=== PATIENT | male | born 1980 | race Caucasian/White ===

== ENCOUNTER 2021-02-11 16:12 | Outpatient (REF) | payer OTHER, SELFPAY ==
--- NOTE | ~2021-02-11 | XR_ITS ---
EXAMINATION: XR THORACIC SPINE XR LEFT HIP CLINICAL INFORMATION: Dorsalgia. COMPARISON: None TECHNIQUE: 2 views left hip. 3 views dorsal spine. FINDINGS: Dorsal Spine: There is normal thoracic kyphosis. The vertebral heights, alignment and disc heights are normal. There is no visible acute fracture, dislocation or subluxation seen. No lytic process. The paravertebral soft tissues are normal. Left Hip: There is no visible acute fracture, dislocation or subluxation. No bony erosive changes. The soft tissues are normal. XR/XR hip LT min 2V IMPRESSION: Unremarkable lumbar spine exam. Unremarkable left hip exam.
--- NOTE | ~2021-02-11 | XR_ITS ---
EXAMINATION: XR THORACIC SPINE XR LEFT HIP CLINICAL INFORMATION: Dorsalgia. COMPARISON: None TECHNIQUE: 2 views left hip. 3 views dorsal spine. FINDINGS: Dorsal Spine: There is normal thoracic kyphosis. The vertebral heights, alignment and disc heights are normal. There is no visible acute fracture, dislocation or subluxation seen. No lytic process. The paravertebral soft tissues are normal. Left Hip: There is no visible acute fracture, dislocation or subluxation. No bony erosive changes. The soft tissues are normal. XR/XR thoracic spine 2V IMPRESSION: Unremarkable lumbar spine exam. Unremarkable left hip exam.
== END 2021-02-11 16:13 | disposition home or self-care (01) ==
LOC: HO.XRAY 16:12
PROVIDERS: PCP Internal Medicine; Visit Provider Internal Medicine
DX: M25.552 Pain in left hip (principal); M54.6 Pain in thoracic spine
CPT/HCPCS: 72070; 73502

== ENCOUNTER 2021-02-12 16:11 | Outpatient (REF) | payer OTHER, SELFPAY ==
[2021-02-12 16:37] LABS: MANUAL DIFF FLAG NO
[2021-02-12 17:07] LABS: Alanine Aminotransferase 13 U/L (0-40); Albumin Level 4.2 g/dL (3.5-5.0); Alkaline Phosphatase 66 U/L (39-117); Anion Gap 11 (12-20); Aspartate Amino Transferase 14 U/L (5-37); Bilirubin Total 0.6 mg/dL (0.0-1.0); Blood Urea Nitrogen 17 mg/dL (9-16); Calcium 9.4 mg/dL (8.4-10.2); Carbon Dioxide 30 mmol/L (22-29); Chloride 103 mmol/L (96-108); Estimated Glomerular Filt Rate > 60; Glucose Fasting 93 mg/dL (60-99); Potassium 4.3 mmol/L (3.3-5.1); Sodium 140 mmol/L (135-145); Total Protein 7.6 g/dL (6.5-8.0)
[2021-02-12 17:38] LABS: Basophils Percent Auto 0.2 % (0-2); Eosinophils Absolute Auto 0.1 X10*3/uL (0.0-0.4); Eosinophils Percent Auto 2.8 % (0-4); Hemoglobin 14.1 g/dl (14.0-18.0); Imm Gran Abs Auto 0.01 X10*3/uL (0.00-0.03); Imm Gran Pct Auto 0.2 % (0.0-0.4); Lymphocytes Percent Auto 46.4 % (20-40); Mean Corpuscular HGB Conc 32.8 g/dl (31.0-36.0); Mean Corpuscular Hemoglobin 29.7 pg (27.0-33.0); Mean Corpuscular Volume 90.5 fL (80-98); Mean Platelet Volume 11.2 fL (9.4-12.4); Monocytes Absolute Auto 0.5 X10*3/uL (0.1-1.2); Monocytes Percent Auto 10.4 % (2-11); Neutrophils Absolute Auto 1.7 X10*3/uL (2.0-8.3); Platelet Count 196 X10*3/uL (160-400); Red Blood Count 4.75 X10*6/uL (4.60-5.80); Red Cell Distribution Width 12.5 % (11.0-16.0); White Blood Count 4.3 X10*3/uL (4.8-10.8)
== END 2021-02-12 16:12 | disposition home or self-care (01) ==
LOC: HO.LAB 16:11
PROVIDERS: PCP Internal Medicine; Visit Provider Internal Medicine
DX: K21.9 Gastro-esophageal reflux disease without esophagitis (principal)
CPT/HCPCS: 36415; 80053; 85025

== ENCOUNTER 2021-04-27 12:12 | Emergency (ER) | payer OTHER, SELFPAY ==
[2021-04-27 12:40] VITALS: BP 113/73; PULSE 69; RESP 17; TEMP 36.1; O2SAT 96; BMI 40.4
--- NOTE | 2021-04-27 13:15 | ED.EAR ---
HPI - Ear Problem General Chief complaint: Ear Problems Stated complaint: foreign object in ear Time Seen by Provider: 04/27/21 13:15 History of Present Illness HPI Narrative: Patient complains of broken piece of Q-tip stuck in his left ear, no pain no other complaint Related Data Home Medications Medication Instructions Recorded Confirmed sucralfate 1 gram tablet 1 g PO QID tab 11/19/20 04/25/21 Previous Rx's Medication Instructions Recorded omeprazole 20 mg tablet,delayed 20 mg PO DAILY 30 Days #30 tab 10/22/20 release sumatriptan succinate 25 mg tablet 25 mg PO Q2-4H PRN 30 Days #9 tab 04/25/21 Allergies Allergy/AdvReac Type Severity Reaction Status Date / Time No Known Allergies Allergy Verified 04/25/21 09:42 Review of Systems Review of Systems: Positive for left ear foreign body Negatives are no fever no chills no headache no dizziness no weakness Yes all other systems are reviewed and are negative PMFSH Past Medical History Source: nursing notes reviewed Medical History (Updated 04/28/21 @ 00:01 by Jerad Barros) COVID-19 GERD (gastroesophageal reflux disease) Left hip pain Leukopenia Ophthalmoplegic migraine Sore throat Upper back pain Surgical History No pertinent past surgical history Family History Family History Father No problems noted. Mother Stroke Diabetes Hypertension Social History Social History Alcohol intake: former Patient Tobacco Use Status: Never used Tobacco Second Hand Smoke Exposure: No Advance Directives: Yes Advance Directives Information Provided: Yes Advance Directives on File: No Physical Exam Vital Signs: Vital Signs: Last Vital Signs Temp 96.9 F 04/27/21 12:40 Pulse 69 04/27/21 12:40 Resp 17 04/27/21 12:40 BP 113/73 04/27/21 12:40 Pulse Ox 96 04/27/21 12:40 Body Mass Index 40.4 General appearance is no acute distress, and cooperative Pupils equal round reactive to light extraocular motions are intact The ears the right ear is normal with normal tympanic membrane and clear canal The left ear is blocked with a piece of Q-tip, tympanic membrane not visualized Neck is supple Respiratory no distress Course Course Course Narrative: Piece of broken Q-tip is visualized and removed with a forceps, rear exam of the air shows intact tympanic membrane and no remaining foreign body Discharge Plan Discharge Clinical Impression: Ear foreign body Patient Disposition: Home, Self-Care Additional Instructions: Foreign body was removed, no sign of any damage to the ear drum Be careful using Q-tips, they are [id number] products to soften wax and then you can wash it out with a bulb syringe Prescriptions: No Action omeprazole 20 mg tablet,delayed release (DR/EC) 20 mg PO DAILY 30 Days Qty: 30 RF: 0 sucralfate 1 gram tablet 1 g PO QID RF: 0 sumatriptan succinate 25 mg tablet 25 mg PO Q2-4H PRN (Reason: migraine headache) 30 Days Qty: 9 RF: 3 Interventions: ED Discharge Assessment Last Done: 04/27/21 13:29 Discharge Date/Time: 04/27/21 13:30
== END 2021-04-27 13:30 | disposition home or self-care (01) ==
PROVIDERS: Emergency Provider Emergency Medicine Emergency Medical Services; PCP Internal Medicine
DX: T16.2XXA Foreign body in left ear, initial encounter (principal); W45.8XXA Other foreign body or object entering through skin, initial encounter; Y93.E8 Activity, other personal hygiene; Y92.039 Unspecified place in apartment as the place of occurrence of the external cause; Y99.9 Unspecified external cause status
CPT/HCPCS: 69200; 99283; 99284

== ENCOUNTER → 2021-08-12 10:07 | Outpatient (REF) | payer OTHER, SELFPAY ==
--- NOTE | 2021-08-12 10:11 | ECG_ITS ---
Test Reason : chest pain Blood Pressure : / mmHG Vent. Rate : 062 BPM Atrial Rate : 062 BPM P-R Int : 190 ms QRS Dur : 084 ms QT Int : 386 ms P-R-T Axes : 023 017 010 degrees QTc Int : 391 ms Normal sinus rhythm Normal ECG When compared with ECG of 05-MAR-2020 14:41, Nonspecific T wave abnormality no longer evident in Anterolateral leads Referred By: Yamileth Márquez Electronically Signed By:NIRU CUMMINS
[2021-08-12 10:53] LABS: MANUAL DIFF FLAG NO
[2021-08-12 11:01] LABS: Basophils Percent Auto 0.6 % (0-2); Eosinophils Absolute Auto 0.3 X10*3/uL (0.0-0.4); Eosinophils Percent Auto 8.1 % (0-4); Hematocrit 42.1 % (42-52); Imm Gran Abs Auto 0.02 X10*3/uL (0.00-0.03); Imm Gran Pct Auto 0.6 % (0.0-0.4); Lymphocytes Absolute Auto 1.5 X10*3/uL (1.2-4.9); Lymphocytes Percent Auto 43.4 % (20-40); Mean Corpuscular HGB Conc 33.3 g/dl (31.0-36.0); Mean Corpuscular Hemoglobin 29.7 pg (27.0-33.0); Mean Corpuscular Volume 89.2 fL (80-98); Mean Platelet Volume 10.7 fL (9.4-12.4); Monocytes Absolute Auto 0.4 X10*3/uL (0.1-1.2); Monocytes Percent Auto 11.4 % (2-11); Neutrophils Absolute Auto 1.2 X10*3/uL (2.0-8.3); Neutrophils Percent Auto 35.9 % (45-73); Platelet Count 209 X10*3/uL (160-400); Red Blood Count 4.72 X10*6/uL (4.60-5.80); Red Cell Distribution Width 12.4 % (11.0-16.0); White Blood Count 3.3 X10*3/uL (4.8-10.8)
[2021-08-12 11:24] LABS: Alanine Aminotransferase 20 U/L (0-40); Albumin Level 4.1 g/dL (3.5-5.0); Alkaline Phosphatase 67 U/L (39-117); Anion Gap 12 (12-20); Aspartate Amino Transferase 16 U/L (5-37); Bilirubin Total 0.3 mg/dL (0.0-1.0); Blood Urea Nitrogen 15 mg/dL (9-16); Calcium 9.2 mg/dL (8.4-10.2); Carbon Dioxide 27 mmol/L (22-29); Chloride 105 mmol/L (96-108); Cholesterol 179 mg/dL; Estimated Glomerular Filt Rate > 60; Glucose Fasting 115 mg/dL (60-99); HDL Cholesterol 42 mg/dL; LDL Cholesterol Calculated 100 mg/dl; Potassium 4.6 mmol/L (3.3-5.1); Sodium 139 mmol/L (135-145); Total Protein 7.3 g/dL (6.5-8.0); Triglycerides 186 mg/dL
== END ==
LOC: HO.CARD 10:07
PROVIDERS: PCP Internal Medicine; Visit Provider Internal Medicine
DX: R07.9 Chest pain, unspecified (principal); D64.9 Anemia, unspecified; D72.819 Decreased white blood cell count, unspecified; K21.9 Gastro-esophageal reflux disease without esophagitis; E78.5 Hyperlipidemia, unspecified
CPT/HCPCS: 36415; 80053; 80061; 85025; 93005

== ENCOUNTER 2021-08-29 09:43 | Outpatient (REF) | payer OTHER, SELFPAY ==
--- NOTE | ~2021-08-29 | MR_ITS ---
EXAMINATION: MR BRAIN WITHOUT CONTRAST CLINICAL INFORMATION: Ophthalmoplegic migraine. COMPARISON: None. TECHNIQUE: Multiplanar, multisequence imaging of the brain was performed without contrast. FINDINGS: No diffusion abnormalities are identified to suggest an acute infarct. The ventricles are normal in size. No mass effect or midline shift is seen. No brain parenchymal signal abnormality is noted. No extra-axial fluid collections are seen. The brainstem and cerebellum are normal. The gradient refocused acquisition is normal. The craniovertebral junction, marrow signal, and midline structures are normal. The major intracranial flow voids at the level of the [place] are preserved. The dural venous sinus flow voids are maintained. The mastoid air cells are well aerated. There are multiple retention cysts in the maxillary sinuses bilaterally. Mild ethmoid sinus mucosal thickening noted. MR/MR head/brain wo con IMPRESSION: No acute process. Normal MRI of the brain. Incidental multiple retention cysts dependently in the maxillary sinuses.
== END 2021-08-29 09:44 | disposition home or self-care (01) ==
LOC: HO.MRI 09:43
PROVIDERS: PCP Internal Medicine; Visit Provider Internal Medicine
DX: G43.B0 Ophthalmoplegic migraine, not intractable (principal)
CPT/HCPCS: 70551

== ENCOUNTER 2022-11-17 20:12 | Emergency (ER) | payer OTHER, SELFPAY ==
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
[2022-11-17 20:29] VITALS: BP 144/85; PULSE 78; RESP 18; TEMP 36.1; O2SAT 98; BMI 43.0
[2022-11-17] MEDS: oxyCODONE HCl Immed Release 5 MG TABLET PO (22:53)
== END 2022-11-17 22:54 | disposition home or self-care (01) ==
PROVIDERS: Emergency Provider Student in an Organized Health Care Education/Training Program; PCP Internal Medicine
DX: R51.9 Headache, unspecified (principal); M54.2 Cervicalgia; Z79.899 Other long term (current) drug therapy
CPT/HCPCS: 70450; 72125; 99283; 99284

== ENCOUNTER 2023-03-27 15:19 | Outpatient (REF) | payer OTHER, SELFPAY ==
[2023-03-27 15:32] LABS: MANUAL DIFF FLAG NO
[2023-03-27 15:54] LABS: Basophils Percent Auto 0.3 % (0-2); Eosinophils Absolute Auto 0.2 X10*3/uL (0.0-0.4); Eosinophils Percent Auto 4.1 % (0-4); Hematocrit 42.9 % (42.0-52.0); Hemoglobin 14.3 g/dl (14.0-18.0); Imm Gran Abs Auto 0.02 X10*3/uL (0.00-0.03); Imm Gran Pct Auto 0.5 % (0.0-0.4); Lymphocytes Absolute Auto 1.9 X10*3/uL (1.2-4.9); Mean Corpuscular HGB Conc 33.3 g/dl (31.0-36.0); Mean Corpuscular Hemoglobin 29.5 pg (27.0-33.0); Mean Corpuscular Volume 88.5 fL (80.0-98.0); Mean Platelet Volume 11.3 fL (9.4-12.4); Monocytes Absolute Auto 0.4 X10*3/uL (0.1-1.2); Monocytes Percent Auto 10.4 % (2-11); Neutrophils Absolute Auto 1.5 x10*3/uL (2.0-8.3); Neutrophils Percent Auto 36.7 % (45-73); Platelet Count 207 X10*3/uL (160-400); Red Blood Count 4.85 X10*6/uL (4.60-5.80); Red Cell Distribution Width 12.9 % (11.0-16.0); White Blood Count 3.9 X10*3/uL (4.8-10.8)
[2023-03-27 17:17] LABS: Thyroid Stimulating Hormone 1.24 uIU/mL (0.32-4.0)
[2023-03-27 17:23] LABS: Alanine Aminotransferase 38 U/L (0-40); Albumin Level 4.2 g/dL (3.5-5.0); Alkaline Phosphatase 75 U/L (39-117); Anion Gap 12 (12-20); Aspartate Amino Transferase 23 U/L (5-37); Bilirubin Total 0.7 mg/dL (0.0-1.0); Blood Urea Nitrogen 18 mg/dL (9-16); Calcium 9.2 mg/dL (8.4-10.2); Carbon Dioxide 25 mmol/L (22-29); Chloride 105 mmol/L (96-108); Cholesterol 205 mg/dL; Estimated Glomerular Filt Rate > 60; Glucose Fasting 89 mg/dL (60-99); HDL Cholesterol 46 mg/dL; Potassium 4.4 mmol/L (3.3-5.1); Sodium 138 mmol/L (135-145); Total Protein 7.5 g/dL (6.5-8.0)
[2023-04-01 16:07] LABS: LDL Cholesterol Calculated 134 mg/dl; Triglycerides 127 mg/dL
== END 2023-03-27 15:20 | disposition home or self-care (01) ==
LOC: HO.LAB 15:19
PROVIDERS: PCP Internal Medicine; Visit Provider Internal Medicine
DX: E66.01 Morbid (severe) obesity due to excess calories (principal); Z68.42 Body mass index [BMI] 45.0-49.9, adult
CPT/HCPCS: 36415; 80053; 80061; 84443; 85025

== ENCOUNTER 2023-04-09 21:00 | Emergency (ER) | payer OTHER, SELFPAY ==
--- NOTE | ~2023-04-09 | CT_ITS ---
EXAMINATION: CT ABDOMEN AND PELVIS WITH CONTRAST CLINICAL INFORMATION: Left lower quadrant pain COMPARISON: 10/10/2014 TECHNIQUE: Multidetector volumetric images were obtained from the superior aspect of the liver through the pubic symphysis following administration 85 mL of Omnipaque 350 intravenous contrast. Sagittal and coronal reformatted images were obtained on the technologist's workstation. Oral contrast: No This CT examination was performed using dose optimization techniques as appropriate, variously including the following: *Automated exposure control *Adjustment of mA and/or kV according to patient size (this includes techniques or standardized protocols for targeted exams where dose is matched to indication/reason for exam; i.e. extremities or head) *Use of iterative reconstruction technique DLP: 2167 mGy-cm FINDINGS: Per technologist report, patient was dry heaving after contrast injection, which resulted in stopping the initial scan and repeating the scan with slight delay. LUNG BASES: The visualized lung bases are unremarkable. LIVER, GALLBLADDER, AND BILIARY TREE: The liver is normal in size, shape, and attenuation. Left hepatic lobe hypodensity favors a cyst. No biliary ductal dilatation is present. The gallbladder is unremarkable with no evidence of radiopaque gallstones, gallbladder wall thickening, or obvious pericholecystic inflammatory changes. PANCREAS: Unremarkable. SPLEEN: Unremarkable. ADRENAL GLANDS: Unremarkable. KIDNEYS AND URETERS: Bilateral nephrograms are symmetric. No hydronephrosis or obstructing calculus identified. BLADDER: Partially distended, with some layering excreted contrast material. GASTROINTESTINAL TRACT: No evidence of bowel obstruction. There is a somewhat thick-walled appearance of the duodenum, nonspecific. The appendix is unremarkable. No free fluid or free air is seen. ABDOMINAL WALL: Small fat-containing umbilical hernia with stranding also noted LYMPH NODES: Normal. VASCULAR: Unremarkable. PELVIC VISCERA: Unremarkable. OSSEOUS STRUCTURES: Bilateral L5 pars defects noted. CT/CT abdomen pelvis w IV con IMPRESSION: 1. Somewhat thick-walled appearance of the duodenum, which could reflect duodenitis in the proper clinical setting. 2. Small fat-containing umbilical hernia.
[2023-04-09 21:04] VITALS: BP 141/72; PULSE 92; RESP 18; TEMP 36.8; O2SAT 100; BMI 40.7
[2023-04-09 21:55] LABS: MANUAL DIFF FLAG NO
[2023-04-09 21:56] LABS: Basophils Percent Auto 0.2 % (0-2); Eosinophils Absolute Auto 0.2 X10*3/uL (0.0-0.4); Eosinophils Percent Auto 3.2 % (0-4); Hematocrit 40.6 % (42.0-52.0); Hemoglobin 13.5 g/dl (14.0-18.0); Imm Gran Abs Auto 0.02 X10*3/uL (0.00-0.03); Imm Gran Pct Auto 0.3 % (0.0-0.4); Lymphocytes Absolute Auto 2.3 X10*3/uL (1.2-4.9); Lymphocytes Percent Auto 36.6 % (20-40); Mean Corpuscular HGB Conc 33.3 g/dl (31.0-36.0); Mean Corpuscular Hemoglobin 29.1 pg (27.0-33.0); Mean Corpuscular Volume 87.5 fL (80.0-98.0); Mean Platelet Volume 10.7 fL (9.4-12.4); Monocytes Absolute Auto 0.7 X10*3/uL (0.1-1.2); Monocytes Percent Auto 11.5 % (2-11); Neutrophils Percent Auto 48.2 % (45-73); Platelet Count 208 X10*3/uL (160-400); Red Blood Count 4.64 X10*6/uL (4.60-5.80); Red Cell Distribution Width 13.2 % (11.0-16.0); White Blood Count 6.2 X10*3/uL (4.8-10.8)
[2023-04-09 22:12] LABS: Alanine Aminotransferase 30 U/L (0-40); Albumin Level 3.9 g/dL (3.5-5.0); Alkaline Phosphatase 86 U/L (39-117); Anion Gap 11 (12-20); Aspartate Amino Transferase 18 U/L (5-37); Bilirubin Direct < 0.2 mg/dL (0.0-0.5); Bilirubin Total 0.2 mg/dL (0.0-1.0); Blood Urea Nitrogen 15 mg/dL (9-16); Carbon Dioxide 26 mmol/L (22-29); Chloride 106 mmol/L (96-108); Creatinine Clr Calc Pharmacy 115.5; Estimated Glomerular Filt Rate > 60; Glucose Random 113 mg/dL (60-115); Lipase 15 U/L (8-78); Potassium 4.2 mmol/L (3.3-5.1); Sodium 139 mmol/L (135-145); Total Protein 7.1 g/dL (6.5-8.0)
[2023-04-09 23:39] VITALS: BP 127/86; PULSE 80; RESP 16; TEMP 37.2; O2SAT 96
[2023-04-10 00:35] LABS: Appearance Urine Clear; Color Urine Yellow; Glucose Urine UA Negative (Negative); Leukocyte Esterase Urine Negative (Negative); Nitrite Urine Negative (Negative); PH 5.5 (5.0-9.0); Specific Gravity - Urine 1.025 (1.005-1.025); Urine Blood Negative (Negative); Urine Ketones Negative (Negative); Urine Protein Negative (Neg-Trace)
--- NOTE | 2023-04-10 00:55 | ED.ABDPAIN ---
HPI - Abdominal Pain General Chief Complaint: Abdominal Pain Stated Complaint: abdominal pain Time Seen by Provider: 04/10/23 00:52 Source: patient Mode of arrival: ambulatory Limitations: no limitations History of Present Illness HPI narrative: Patient comes to the emergency room complaining of left lower quadrant pain for 2 days. Patient states it radiates towards the umbilicus and towards the left upper quadrant. The patient denies nausea vomiting or diarrhea, no fever chills, no flank pain. Related Data Previous Rx's Medication Instructions Recorded pseudoephedrine HCl 120 mg 120 mg PO BID PRN nasal congestion 03/11/22 tablet,extended release (Sudafed #20 tabs 12 Hour) sumatriptan succinate 25 mg tablet 25 mg PO Q2-4H PRN migraine 03/11/22 headache 30 days #7 tabs acetaminophen 500 mg tablet 500 mg PO Q6H PRN fever 30 days 03/27/22 #120 tabs ibuprofen 600 mg tablet 600 mg PO Q6H PRN pain #20 tabs 11/17/22 omeprazole 20 mg tablet,delayed 20 mg PO DAILY 30 days #30 tabs 03/24/23 release hyoscyamine sulfate 0.125 mg tablet 0.125 mg PO QID #10 tabs 04/10/23 Allergies Allergy/AdvReac Type Severity Reaction Status Date / Time No Known Allergies Allergy Verified 03/24/23 16:58 Review of Systems Review of Systems Constitutional : No Weight loss, No Fever, No Chills, No Night Sweats, No Fatigue, No Malaise ENT/Mouth : No Hearing loss, No Ear Pain, No Nasal Congestion, No Sinus Pain, No Hoarseness, No sore throat, No Rhinorrhea, No Swallowing Difficulty Eyes: No Eye Pain, No Swelling, No Redness, No Foreign Body, No Discharge, No Vision Changes Cardiovascular : No Chest Pain, No SOB, No Dyspnea on Exertion, No Orthopnea, No Edema, No Palpitations Respiratory : No Cough, No Sputum, No Wheezing, No Smoke Exposure, No Dyspnea Gastrointestinal : No Nausea, No Vomiting, No Diarrhea, No Constipation, complaining of left lower quadrant pain, no hematochezia or melena Genitourinary : no irregular bleeding, No Dysuria, No Urinary Frequency, No Hematuria, No Urinary Incontinence, No Urgency, No Flank Pain, No Urinary Flow Changes, No Hesitancy Musculoskeletal : No joint pain, No Myalgias, No Joint Swelling Skin : No Skin Lesions, No rash Neuro : No Weakness, No Numbness, No Paresthesias, No Loss of Consciousness, No Dizziness, No Headache Psych : No Anxiety/Panic, No Depression, No SI/HI/AH/VH, No Social Issues, Heme/Lymph: No Bruising, No Bleeding,No Lymphadenopathy Endocrine : No Polyuria, No Polydipsia, No Temperature Intolerance [facility] Past Medical History Medical History Chest pain COVID-19 Dysphagia GERD (gastroesophageal reflux disease) Left hip pain Leukopenia Lumbar pain Morbid obesity with BMI of 40.0-44.9, adult Ophthalmoplegic migraine Sore throat Upper back pain Surgical History No pertinent past surgical history Family History Family History Father No problems noted. Mother Stroke Diabetes Hypertension Social History Social History Housing: House Alcohol intake: former Patient Tobacco Use Status: Never used Tobacco Smoked in Last 30 Days: No e-Cigarette/Vaping Use: Never Used Second Hand Smoke Exposure: No Use of substances other than those prescribed or required for medical reasons: No Advance Directives: No Advance Directives Information Provided: Yes service: No Current occupational status: employed Current occupational exposures/hazards: No Cognitive needs: No Hearing needs: No Vision needs: Yes (glasses) Physical Exam ED Vital Signs: Vital Signs - 24 hr 04/09/23 21:04 04/09/23 23:39 Temperature 98.2 F 99 F Pulse Rate 92 80 Respiratory Rate 18 16 Blood Pressure 141/72 H 127/86 Pulse Oximetry 100 96 Oxygen Delivery Method Room Air Room Air BMI result Body Mass Index 40.7 Const Other: Appearance: Alert. Oriented X3. No acute distress. Eyes: Pupils equal, round and reactive to light. ENT: Pharynx normal. Neck: Normal inspection. Neck supple. No lymph nodes noted. No crepitus CVS: Normal heart rate and rhythm. Pulses normal. Normal S1 and S2 Respiratory: No respiratory distress. Breath sounds normal. No Wheezing. No rales Abdomen: Soft, moderate pain to palpation in the left lower quadrant, no rebound or guarding, no flank pain Skin: Skin warm and dry. Normal skin color. Normal skin turgor. Extremities: No lower extremity edema. No Lacerations. No Rash Neuro: Oriented X 3. No motor deficit. No sensory deficit. Moving all extremities. No slurred speech. CN 2 through 12 grossly intact Psych: calm, cooperative, normal affect Course Course Course Narrative: -white blood cell count within normal limits, LFTs, lipase and chemistry normal, urinalysis negative for UTI. -patient has tenderness over the left lower quadrant, we will go ahead and order a CT scan of the abdomen with contrast. Patient agreeable to plan Medical Decision Making Medical Decision Making [facility] Narrative: -I discussed the CT findings with the patient, possible duodenitis. However, patient does not have epigastric pain or upper abdominal pain, patient has mostly pain in the left lower quadrant. White blood cell count normal. -patient was given 1 dose of IV Toradol, patient feeling better. Lab Data [facility] Lab Attestation statement: I reviewed the patient's lab results. 04/09/23 21:51 04/09/23 21:51 Labs: Lab Results 04/09/23 04/09/23 04/10/23 Range/Units 21:51 21:51 00:26 WBC 6.2 (4.8-10.8) X10*3/uL RBC 4.64 (4.60-5.80) X10*6/uL Hgb 13.5 L (14.0-18.0) g/dl Hct 40.6 L (42.0-52.0) % MCV 87.5 (80.0-98.0) fL MCH 29.1 (27.0-33.0) pg MCHC 33.3 (31.0-36.0) g/dl RDW 13.2 (11.0-16.0) % Plt Count 208 (160-400) X10*3/uL MPV 10.7 (9.4-12.4) fL Immature Gran % (Auto) 0.3 (0.0-0.4) % Neut % (Auto) 48.2 (45-73) % Lymph % (Auto) 36.6 (20-40) % Nobles % (Auto) 11.5 H (2-11) % Eos % (Auto) 3.2 (0-4) % Baso % (Auto) 0.2 (0-2) % Lymph # (Auto) 2.3 (1.2-4.9) X10*3/uL Nobles # (Auto) 0.7 (0.1-1.2) X10*3/uL Eos # (Auto) 0.2 (0.0-0.4) X10*3/uL Baso # (Auto) 0.0 (0.0-0.2) X10*3/uL Abs Immat Gran (auto) 0.02 (0.00-0.03) X10*3/uL Absolute Neuts (auto) 3.0 (2.0-8.3) x10*3/uL Absolute Nucleated RBC 0.000 (0.0-0.012) X10*3/uL Nucleated RBC % (auto) 0.0 (0.0-0.2) /100WBC Sodium 139 (135-145) mmol/L Potassium 4.2 (3.3-5.1) mmol/L Chloride 106 (96-108) mmol/L Carbon Dioxide 26 (22-29) mmol/L Anion Gap 11 L (12-20) BUN 15 (9-16) mg/dL Creatinine 1.19 (0.5-1.4) mg/dL Estim Creat Clear Calc 115.5 Estimated GFR > 60 Random Glucose 113 (60-115) mg/dL Calcium 9.0 (8.4-10.2) mg/dL Total Bilirubin 0.2 (0.0-1.0) mg/dL Direct Bilirubin < 0.2 (0.0-0.5) mg/dL AST 18 (5-37) U/L ALT 30 (0-40) U/L Alkaline Phosphatase 86 (39-117) U/L Total Protein 7.1 (6.5-8.0) g/dL Albumin 3.9 (3.5-5.0) g/dL Lipase 15 (8-78) U/L Urine Color Yellow Urine Appearance Clear Urine pH 5.5 (5.0-9.0) Ur Specific [place] 1.025 (1.005-1.025) Urine Protein Negative (Neg-Trace) mg/dL Urine Glucose (UA) Negative (Negative) mg/dL Urine Ketones Negative (Negative) mg/dL Urine Blood Negative (Negative) Urine Nitrite Negative (Negative) Ur Leukocyte Esterase Negative (Negative) Radiology Impression Discussion of test interpretation with radiology: I have reviewed the radiologist's reading. Radiologist Impression: FINDINGS: Per technologist report, patient was dry heaving after contrast injection, which resulted in stopping the initial scan and repeating the scan with slight delay. LUNG BASES: The visualized lung bases are unremarkable.? LIVER, GALLBLADDER, AND BILIARY TREE: The liver is normal in size, shape, and attenuation. Left hepatic lobe hypodensity favors a cyst. No biliary ductal dilatation is present. The gallbladder is unremarkable with no evidence of radiopaque gallstones, gallbladder wall thickening, or obvious pericholecystic inflammatory changes.? PANCREAS: Unremarkable.? SPLEEN: Unremarkable.? ADRENAL GLANDS: Unremarkable.? KIDNEYS AND URETERS: Bilateral nephrograms are symmetric. No hydronephrosis or obstructing calculus identified.? BLADDER: Partially distended, with some layering excreted contrast material. GASTROINTESTINAL TRACT: No evidence of bowel obstruction. There is a somewhat thick-walled appearance of the duodenum, nonspecific. The appendix is unremarkable. No free fluid or free air is seen. ABDOMINAL WALL: Small fat-containing umbilical hernia with stranding also noted? LYMPH NODES: Normal. VASCULAR: Unremarkable. PELVIC VISCERA: Unremarkable.? OSSEOUS STRUCTURES: Bilateral L5 pars defects noted.? CT/CT abdomen pelvis w IV con IMPRESSION: 1.? Somewhat thick-walled appearance of the duodenum, which could reflect duodenitis in the proper clinical setting. 2.? Small fat-containing umbilical hernia. Medications Administered Discontinued Medications Generic Name Dose Route Start Last Admin Trade Name Kimberley PRN Reason Stop Dose Admin Iohexol 100 ml 04/10/23 01:22 04/10/23 01:22 Iohexol 350 Mg/Ml 100 Ml Infus..Btl IV 04/10/23 01:23 100 ml ONCE ONE Administration Discharge Plan Discharge Clinical Impression: Abdominal pain Patient Disposition: Home, Self-Care Instructions: Abdominal Pain (ED) Additional Instructions: Please follow-up with your primary care physician tomorrow. If you have any worsening or new symptoms, please return to the emergency room or call 911 Prescriptions: New hyoscyamine sulfate 0.125 mg tablet 0.125 mg PO QID Qty: 10 0RF No Action ibuprofen 600 mg tablet 600 mg PO Q6H PRN (Reason: pain) Qty: 20 0RF acetaminophen 500 mg tablet 500 mg PO Q6H PRN (Reason: fever) 30 Days Qty: 120 1RF pseudoephedrine HCl [Sudafed 12 Hour] 120 mg tablet extended release 120 mg PO BID PRN (Reason: nasal congestion) Qty: 20 0RF sumatriptan succinate 25 mg tablet 25 mg PO Q2-4H PRN (Reason: migraine headache) 30 Days Qty: 7 0RF Rx Instructions: do not exceed 8 doses per 24 hrs omeprazole 20 mg tablet,delayed release (DR/EC) 20 mg PO DAILY 30 Days Qty: 30 0RF
[2023-04-10] MEDS: iohexoL 350 MG/ML 100 ML INFUS..BTL IV (01:22)
[2023-04-10] MEDS: Ketorolac Tromethamine 30 MG/ML VIAL IVPUSH (02:22)
--- NOTE | 2023-04-10 02:24 | PC.NURSE ---
Pt ca&ox3. No signs of distress. Pt denies chest pain and sob. Pt reporting 7/10 abdm pain. Pt medicated per mar. Will continue to monitor.
[2023-04-10 03:05] VITALS: BP 121/81; PULSE 76; RESP 14
[2023-04-10 03:06] VITALS: BP 121/81; PULSE 76; RESP 14; O2SAT 96
== END 2023-04-10 03:15 | disposition home or self-care (01) ==
PROVIDERS: Emergency Provider Emergency Medicine; PCP Internal Medicine
DX: R10.32 Left lower quadrant pain (principal); Z79.899 Other long term (current) drug therapy
CPT/HCPCS: 36415; 74177; 80048; 80076; 81003; 83690; 85025; 96374; 99284; J1885; Q9967

== ENCOUNTER → 2024-03-01 15:31 | Outpatient (AMB) | payer MEDICAID, SELFPAY ==
--- NOTE | 2024-03-01 15:45 | AM.OFFWIN_ITS ---
Intake Vital Signs 03/01/24 15:46 Height 6 ft Weight 315 lb BMI 42.7 BP 126/76 Blood Pressure Location Lt brachial Position Sitting Pulse 83 Pulse Source Pulse Oximeter Temp 98.2 F Temp Source Oral Pulse Oximetry (%) 96 Oxygen Delivery Method Room Air Intake Visit Reasons: EP Stomach bug Intake Note: pt is here for c/o stomach bug since yesterday, not sure if its what he ate Patient Tobacco Use Status: Never used Tobacco Allergies No Known Allergies Allergy (Verified 03/01/24 15:47) Do you need a note to return to daycare/school/sports/work: No HPI HPI Comments History of Present Illness Details 43-year-old male presents today complain ing of abdominal and chest pain radiates through to his back x2 days. He states he also had episode of diarrhea. The patient is concerned it was something he ate. [facility] Medical History Chest pain COVID-19 Dysphagia GERD (gastroesophageal reflux disease) Left hip pain Leukopenia Lumbar pain Morbid obesity with BMI of 40.0-44.9, adult Ophthalmoplegic migraine Sore throat Upper back pain Surgical History No pertinent past surgical history Family History Father No problems noted. Mother Stroke Diabetes Hypertension Social History Housing: House Alcohol intake: former Patient Tobacco Use Status: Never used Tobacco e-Cigarette/Vaping Use: Never Used Second Hand Smoke Exposure: No service: No Current occupational status: employed Current occupational exposures/hazards: No Cognitive needs: No Hearing needs: No Vision needs: Yes (glasses) Physical Exam Vital Signs: Last Vital Signs Temp 98.2 F 03/01/24 15:46 Pulse 83 03/01/24 15:46 BP 126/76 03/01/24 15:46 Pulse Ox 96 03/01/24 15:46 Oxygen Delivery Method Room Air 03/01/24 15:46 BMI result Body Mass Index 42.7 HEENT Head: Yes normal to inspection, Yes normocephalic and Yes atraumatic Ears: hearing grossly normal bilaterally, external ears normal, TM's normal bilaterally and EAC's normal General nose exam: Normal external nose present Face and sinus: Yes normal facial exam Resp Effort & Inspection: normal respiratory effort Auscultation: clear to auscultation bilaterally Cardio Rate: regular rate Rhythm: regular rhythm GI Inspection: Yes obesity Palpation (GI): Tenderness to palpation present (GI) in the epigastrum Percussion: Yes normal to percussion Auscultation: normal bowel sounds Results Reviewed Results Reviewed: An EKG that was ordered today was normal findings. Blood work was ordered to rule out cholecystitis or pancreatitis. We will follow up with his PCP Assessment & Plan Assessment & Plan (1) Epigastric pain: Code(s): R10.13 - Epigastric pain Plan: The patient will have some blood work to rule out cholecystitis and follow up with his PCP Plan See plan Orders: Orders Amylase Today R10.13 - Epigastric pain Lipase Today R10.13 - Epigastric pain Complete Blood Count Auto Diff Today R10.13 - Epigastric pain Comprehensive Met. Panel Today R10.13 - Epigastric pain Coding Level of Care Code Est Pt Level 3 (51110) Diagnoses Epigastric pain R10.13
[2024-03-01 15:46] VITALS: BP 126/76; PULSE 83; TEMP 36.8; O2SAT 96; BMI 42.7
== END ==
PROVIDERS: PCP Internal Medicine; Visit Provider Physician Assistant Medical
DX: R10.13 Epigastric pain (principal)
CPT/HCPCS: 99213

== ENCOUNTER 2024-03-28 16:04 | Outpatient (AMB) | payer OTHER, SELFPAY ==
[2024-03-28 16:11] VITALS: BP 122/70; BMI 43.0
--- NOTE | 2024-03-28 16:11 | MHC.PC.OV ---
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 Accompanied by: Self / Same As Patient Allergies No Known Allergies Allergy (Verified 03/28/24 16:24) Medication List - Last Reconciled 03/28/24 by Yamileth Márquez MD acetaminophen 500 mg PO Q6H PRN 30 days hyoscyamine sulfate 0.125 mg PO QID ibuprofen 600 mg PO Q6H PRN omeprazole 20 mg PO DAILY 30 days pseudoephedrine HCl ER (Sudafed 12 Hour) 120 mg PO BID PRN sumatriptan succinate 25 mg PO Q2-4H PRN 30 days Tobacco use date assessed: 03/28/24 Dental Screening Dental Screen Date: 03/28/24 Did you have a dental visit in the last 12 months?: No Did you have a dental problem in the last 6 months where you did not have access to dental care?: No Was dental information given to patient?: Patient has dentist HPI HPI Comments History of Present Illness Details This is a 43-year-old male with morbid obesity that comes for his physical exam. He declines weight loss surgery or weight management. Was advised to diet and exercise to reach BMI goal less than 30. Denies any chest pain or shortness of breath. No change in bowel or bladder habits. 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 [facility] Medical History (Updated 03/28/24 @ 16:37 by Yamileth Márquez MD) Morbid obesity with BMI of 45.0-49.9, adult Lumbar pain Dysphagia Chest pain Morbid obesity with BMI of 40.0-44.9, adult Ophthalmoplegic migraine Leukopenia Sore throat Left hip pain Upper back pain COVID-19 GERD (gastroesophageal reflux disease) Surgical History No pertinent past surgical history Family History Father No problems noted. Mother Stroke Diabetes Hypertension Social History Housing: House Alcohol intake: former Patient Tobacco Use Status: Never used Tobacco e-Cigarette/Vaping Use: Never Used Second Hand Smoke Exposure: No service: No Current occupational status: employed Current occupational exposures/hazards: No Cognitive needs: No Hearing needs: No Vision needs: Yes (glasses) Questionnaire PHQ-9 Over the last 2 weeks, how often have you been bothered by any of the following problems? 1. Little interest or pleasure in doing things: not at all 2. Feeling down, depressed, or hopeless: not at all 3. Trouble falling or staying asleep, or sleeping too much: not at all 4. Feeling tired or having little energy: not at all 5. Poor appetite or overeating: not at all 6. Feeling bad about yourself - or that you are a failure or have let yourself or your family down: not at all 7. Trouble concentrating on things, such as reading the newspaper or watching television: not at all 8. Moving or speaking so slowly that other people could have noticed. Or the opposite - being so fidgety or restless that you have been moving around a lot more than usual: not at all 9. Thoughts that you would be better off or of hurting yourself in some way: not at all Total score: 0 Depression Screening Interpretation: Negative Depression Screening Done: Yes 84121 - PHQ-9 Billing: Yes Source: Developed by Drs. Sergey Aquino, Gisela Stewart, Josue Cortes and colleagues, with an educational rojelio from [employer]. Thrive Questionnaire Date Thrive assessed: 03/28/24 I am a: Patient What is your living situation today?: I have a steady place to live Within the past 12 months, did the food you bought not last and you didn't have the money to get more?: Never true Within the past 12 months, did you worry whether your food would run out before you got money to buy more?: Never true Do you have trouble paying for medicines?: No Do you have trouble getting transportation to medical appointments?: No Do you have trouble paying your heating and electricity bill?: No Do you have trouble taking care of your child, family member or friend?: No Do you have trouble with day-to-day activities such as bathing, preparing meals, shopping, managing finances, etc.?: No Are you currently unemployed and looking for a job?: No Are you interested in more education?: No Please select the resources that you would like help with: None Currently or been in a relationship where the following occur: no concerns reported THRIVE Score: 0 AUDIT C Alcohol Use Questionnaire (AUDIT-C) 1. How often do you have a drink containing alcohol?: Never Total Score: 0 Score Reviewed/Action Taken: No KERRY-7 AMB Questionnaire KERRY-7 Date KERRY - 7 assessed: 03/28/24 Feeling nervous, anxious, or on edge: 0 = Not at all Not being able to stop or control worryin = Not at all Worrying too much about different things: 0 = Not at all Trouble relaxin = Not at all Being so restless that it is hard to sit still: 0 = Not at all Becoming easily annoyed or irritable: 0 = Not at all Feeling afraid as if something awful might happen: 0 = Not at all Total KERRY-7 score (0-4 normal; 5-9 mild; 10-14 moderate; 15-21 severe): 0 Source: Developed by Drs. Sergey Aquino, Gisela Stewart, Josue Cortes and colleagues, with an educational rojelio from [employer]. KERRY-7 Assessment Billing KERRY-7 Assessment Tool: KERRY-7 Assessment 72323 Review of Systems Const All systems reviewed & are unremarkable except as noted in HPI and below Eyes Reports no additional complaints, Denies change in vision and Denies other visual disturbances Card Denies chest pain at rest, Denies chest pain with activity, Denies edema, Denies irregular heart rhythm, Denies claudication, Denies dyspnea, Denies dyspnea on exertion, Denies orthopnea, Denies paroxysmal nocturnal dyspnea and Denies slow heart rate Resp Denies cough, Denies dyspnea and Denies dyspnea on exertion Physical exam (Primary Care) Vital Signs: Last Vital Signs BP 122/70 03/28/24 16:11 BMI result Body Mass Index 43.0 Tobacco/Smoking Status: Tobacco use Status Tobacco use date assessed 03/28/24 03/28/24 16:15 Patient Tobacco Use Status Never used Tobacco 03/28/24 16:15 e-Cigarette/Vaping Use Never Used 03/28/24 16:15 PHQ-9: PHQ-9 Score PHQ-9: Total score 0 03/28/24 16:15 Depression Screening Interpretation: Negative Thrive Assessment: Date of Thrive Assessment Date Thrive assessed 03/28/24 03/28/24 16:15 Currently or been in a relationship where the following occur: no concerns reported Const Orientation/consciousness: patient oriented x3 HENMT Head: Yes normal to inspection, Yes normocephalic and Yes atraumatic Ears: external ears normal Eyes General: appearance normal, both eyes and all related structures Eyelids: Yes eyelids normal Conjunctivae: conjunctivae normal Neck Neck: Yes normal visual inspection and Yes supple Resp Effort & Inspection: normal respiratory effort Auscultation: clear to auscultation bilaterally Cardio Jugular venous distension: no JVD Rate: regular rate Rhythm: regular rhythm Heart sounds: S1 normal heart sound present and S2 normal heart sound present GI Inspection: Yes normal to inspection Palpation (GI): Soft to palpation and nontender Auscultation: normal bowel sounds Skin General skin exam: no rashes or lesions noted Neuro General: patient oriented x3 and no focal motor deficits Extrem General: Yes full ROM Psych Appearance: grossly normal Assessment and Plan Assessment & Plan (1) Physical exam: Code(s): Z00.00 - Encounter for general adult medical examination without abnormal findings Plan: Repeat in a year. (2) Morbid obesity with BMI of 40.0-44.9, adult: Code(s): E66.01 - Morbid (severe) obesity due to excess calories; Z68.41 - Body mass index [BMI] 40.0-44.9, adult Plan: Advised to do diet and exercise. BMI goal is less than 30. Orders: Orders Lipid Panel Today E78.5 - Hyperlipidemia, unspecified Complete Blood Count Auto Diff Today D64.9 - Anemia, unspecified IRON PROFILE Today D64.9 - Anemia, unspecified UA CC w/rflx Micro + Cult Today R30.0 - Dysuria Comprehensive [place]. Panel Fast Today Z00.00 - Encounter for general adult medical examination without abnormal findings Medications: Changed From omeprazole 20 mg PO DAILY 30 days 30 tabs 0RF To omeprazole 20 mg PO DAILY 90 days 90 tabs 1RF Coding Level of Care Code Est Pt Prev Care 40-64y(10521) Diagnoses Physical exam Z00.00 Morbid obesity with BMI of 40.0-44.9, adult E66.01; Z68.41 Additional Codes KERRY-7 Assessment Billing - KERRY-7 Assessment Tool: KERRY-7 Assessment 08912 ([id number]) Time Spent (min) 31
== END 2024-03-28 16:33 | disposition home or self-care (01) ==
PROVIDERS: Visit Provider Internal Medicine
DX: Z00.00 Encounter for general adult medical examination without abnormal findings (principal); E66.01 Morbid (severe) obesity due to excess calories; Z68.41 Body mass index [BMI] 40.0-44.9, adult; K21.9 Gastro-esophageal reflux disease without esophagitis
CPT/HCPCS: 99396

== ENCOUNTER 2024-06-05 00:07 | Emergency (ER) | payer OTHER, SELFPAY ==
--- NOTE | ~2024-06-05 | XR_ITS ---
EXAMINATION: XR FOOT, LEFT CLINICAL INFORMATION: Chronic pain COMPARISON: None available. TECHNIQUE: AP, lateral, and oblique views of the left foot. FINDINGS: Bones the midfoot are well aligned. No tarsal, metatarsal or phalangeal fracture. No significant degenerative changes. No localized soft tissue swelling. No radiopaque foreign body. No gross ankle joint effusion. XR/XR foot LT min 3V IMPRESSION: Unremarkable radiographs of the left foot.
[2024-06-05 00:40] VITALS: BP 121/81; PULSE 81; RESP 14; TEMP 36.7; O2SAT 94; BMI 44.3
[2024-06-05 06:23] VITALS: BP 115/78; PULSE 69; RESP 16; TEMP 36.2; O2SAT 98
--- NOTE | 2024-06-05 06:33 | ED.GENADULT ---
HPI - General Adult General Chief complaint: General Medical Stated complaint: right eye red and irritated, left foot pain Time Seen by Provider: 06/05/24 06:32 Source: patient and RN notes reviewed Mode of arrival: ambulatory Limitations: no limitations History of Present Illness ED Provider: Susi Flores PA-C HPI narrative: This is a 44-year-old male, with no known medical problems, who presents emergency department with complaints of left foot pain and right eye swelling, itchiness. Patient states that over the course of the last several months he has had intermittent left foot pain, states that the pain worsens with prolonged standing, and walking. He states that the pain worsens with palpation. Denies any specific trauma or injury. He states that he also noticed right upper eyelid swelling and itchiness. He denies any eye trauma. He denies any fevers, chills, chest pain, shortness of breath, eye pain, changes in vision, nausea, vomiting or diarrhea. Denies taking any medications prior to his arrival. Denies history of similar symptoms in the past. No other complaints or concerns at this time. MD complaint: Left foot pain, right eye swelling Onset (ago): day(s) Location: lower extremity Radiation: non-radiation Relieving factors: none Exacerbating factors: none Associated symptoms: denies other symptoms Treatments prior to arrival: none Related Data Previous Rx's ?Medication ?Instructions ?Recorded pseudoephedrine HCl 120 mg 120 mg PO BID PRN nasal congestion 03/11/22 tablet,extended release (Sudafed #20 tabs 12 Hour) sumatriptan succinate 25 mg tablet 25 mg PO Q2-4H PRN migraine 03/11/22 headache 30 days #7 tabs ibuprofen 600 mg tablet 600 mg PO Q6H PRN pain #20 tabs 11/17/22 hyoscyamine sulfate 0.125 mg tablet 0.125 mg PO QID #10 tabs 04/10/23 acetaminophen 500 mg tablet 500 mg PO Q6H PRN fever 30 days 12/04/23 #120 tabs omeprazole 20 mg tablet,delayed 20 mg PO DAILY 90 days #90 tabs 03/28/24 release erythromycin 5 mg/gram (0.5 %) eye 0.5 inch ophthalmic (eye) QID 7 06/05/24 ointment days #3.5 grams ibuprofen 600 mg tablet 600 mg PO Q6H PRN pain #30 tabs 06/05/24 Allergies Allergy/AdvReac Type Severity Reaction Status Date / Time No Known Allergies Allergy Verified 06/05/24 00:43 Review of Systems Review of Systems: Yes all other systems are reviewed and are negative Constitutional: Constitutional: Reports as per [facility] Past Medical History Attestation statement: The following information was validated with the patient. Medical History Morbid obesity with BMI of 45.0-49.9, adult Lumbar pain Dysphagia Chest pain Morbid obesity with BMI of 40.0-44.9, adult Ophthalmoplegic migraine Leukopenia Sore throat Left hip pain Upper back pain COVID-19 GERD (gastroesophageal reflux disease) Surgical History No pertinent past surgical history Family History Family History Father No problems noted. Mother Stroke Diabetes Hypertension Social History Social History Housing: House Alcohol intake: former Patient Tobacco Use Status: Never used Tobacco e-Cigarette/Vaping Use: Never Used Second Hand Smoke Exposure: No Advance Directives: No Advance Directives Information Provided: No Do you have a plan to hurt others: No Plan service: No Current occupational status: employed Current occupational exposures/hazards: No Cognitive needs: No Hearing needs: No Vision needs: Yes (glasses) Physical Exam ED Vital Signs: Vital Signs - 24 hr 06/05/24 00:40 06/05/24 06:23 06/05/24 08:14 Temperature 98.1 F 97.2 F 97.7 F Pulse Rate 81 69 62 Respiratory Rate 14 16 14 Blood Pressure 121/81 115/78 135/77 Pulse Oximetry 94 98 95 Oxygen Delivery Method Room Air Room Air Room Air BMI result Body Mass Index 44.3 Const General: cooperative, comfortable and no acute distress Orientation/consciousness: patient oriented x3 Limitations: no limitations HENMT Head: Yes normal to inspection, Yes normocephalic and Yes atraumatic Ears: hearing grossly normal bilaterally General nose exam: Normal external nose present Face and sinus: Yes normal facial exam Mouth: Normal oral and palatal mucosa present, oropharynx normal and moist mucous membranes Throat: Yes posterior oropharynx normal Eyes Other: Right upper eyelid is erythematous and edematous, with yellow crusting and drainage noted to the right eye, right eye conjunctiva is slightly injected, with crusting noted to the lower lid. No pain with extraocular movements. Left eye unremarkable Pupils: Equal, round and reactive pupils present EOM: EOMs intact bilaterally Neck Neck: Yes normal visual inspection, Yes full ROM and Yes no lymphadenopathy Lymphatic: no lymphadenopathy noted Chest Chest palpation & inspection: normal inspection of the chest Resp Effort & Inspection: normal respiratory effort and able to speak in complete sentences Auscultation: clear to auscultation bilaterally, no crackles, no rales, no rhonchi and no wheezes Cardio Rate: regular rate Rhythm: regular rhythm Heart sounds: S1 normal heart sound present and S2 normal heart sound present GI Inspection: Yes normal to inspection Skin General skin exam: no rashes or lesions noted Trauma: no lacerations or abrasions Wounds: no wounds Neuro General: patient oriented x3 and moves all extremities Cranial nerves: Yes Equal, round and reactive pupils present Extrem Other: Left foot, with no bony abnormality seen. He has tenderness palpation along the heel and plantar fascia insertion site. No overlying skin changes or warmth. No foreign body. Full range of motion of the ankle. Patient is ambulatory with steady gait. General: Yes normal to inspection Right upper extremity: normal to inspection Left upper extremity: normal to inspection Right lower extremity: normal to inspection Left lower extremity: normal to inspection Medications Administered Discontinued Medications Generic Name Dose Route Start Last Admin Trade Name Freq PRN Reason Stop Dose Admin Fluorescein Sodium 1 strip 06/05/24 06:36 06/05/24 07:50 Fluorescein Sodium Strip EYE-LEFT 06/05/24 06:37 1 strip ONCE ONE Administration Tetracaine HCl 1 drop 06/05/24 06:36 06/05/24 07:51 Tetracaine Hcl/Pf 0.5% Oph Eva 4 Ml Drops EYE-LEFT 06/05/24 06:37 1 drop ONCE ONE Administration Medical Decision Making Medical Decision Making [facility] Narrative: This is a 44-year-old male, with no known medical problems, who presents emergency department with complaints of right eye lid pain, itchiness, and swelling since yesterday. He also is endorsing left heel pain ongoing for several months. On examination, vital signs within normal limits. Left foot with tenderness palpation along the heel, and plantar fascia insertion site. He is full range of motion of the ankle joint. Differential diagnoses include plantar fasciitis, fracture, strain, sprain, contusion. Conjunctivitis, blepharitis, periorbital cellulitis and orbital cellulitis also considered. Orbital cellulitis less likely secondary to no changes in vision as well as no pain with extraocular movements. X-ray was ordered of the left foot, which was unremarkable. Discussed findings and workup with patient. Symptoms likely attributed to plantar fasciitis and blepharitis. Discharged on erythromycin ointment, given return precautions. He understands and agrees with plan. Visual acuity intact, he states that he does not have his glasses with him however states no changes in his vision. No other complaints or concerns at this time. Differential Diagnosis Differential Diagnoses: The differential diagnosis associated with the presentation includes See above Radiology Impression Discussion of test interpretation with radiology: I have reviewed the radiologist's reading. Radiologist Impression: XR/XR foot LT min 3V IMPRESSION: Unremarkable radiographs of the left foot. Dictated By: Elvin Yarbrough MD Discharge Plan Discharge Clinical Impression: Blepharitis, Plantar fasciitis, left Patient Disposition: Home, Self-Care Instructions: Blepharitis (ED), Plantar Fasciitis (ED), Plantar Fasciitis Exercises (ED) Additional Instructions: You were seen in the emergency department due to right upper eyelid swelling and itchiness. Your eyelid is infected causing you to have the symptoms. Please use antibiotic ointment to your eye as directed. Finish the entire course even if your symptoms improve. Warm compresses 5-6 times per day. You also were seen due to left foot pain, your symptoms are likely due to plantar fasciitis. Please rest, ice, elevate your leg. See attached stretches and exercises to help with your symptoms. Invested in a new pair of shoes that provide supportive insoles. If any new or worsening symptoms occur including but not limited to visual changes, eye pain, severe headache, please return for re-evaluation. Prescriptions: New erythromycin 5 mg/gram (0.5 %) ointment 0.5 inch ophthalmic (eye) QID 7 Days Qty: 3.5 0RF ibuprofen 600 mg tablet 600 mg PO Q6H PRN (Reason: pain) Qty: 30 0RF No Action acetaminophen 500 mg tablet 500 mg PO Q6H PRN (Reason: fever) 30 Days Qty: 120 1RF ibuprofen 600 mg tablet 600 mg PO Q6H PRN (Reason: pain) Qty: 20 0RF hyoscyamine sulfate 0.125 mg tablet 0.125 mg PO QID Qty: 10 0RF pseudoephedrine HCl [Sudafed 12 Hour] 120 mg tablet extended release 120 mg PO BID PRN (Reason: nasal congestion) Qty: 20 0RF sumatriptan succinate 25 mg tablet 25 mg PO Q2-4H PRN (Reason: migraine headache) 30 Days Qty: 7 0RF Rx Instructions: do not exceed 8 doses per 24 hrs omeprazole 20 mg tablet,delayed release (DR/EC) 20 mg PO DAILY 90 Days Qty: 90 1RF Stand Alone Forms: Work/School Release Interventions: ED Discharge Assessment Last Done: 06/05/24 08:24 Print Language: Mosotho
[2024-06-05] MEDS: Fluorescein Sodium STRIP 1 STRIP EYE-LEFT (07:50)
[2024-06-05] MEDS: Tetracaine HCl/PF 0.5% Oph Sol 4 ML DROPS 1 DROP EYE-LEFT (07:51)
[2024-06-05 08:14] VITALS: BP 135/77; PULSE 62; RESP 14; TEMP 36.5; O2SAT 95
[2024-06-05 08:24] VITALS: BP 135/77; PULSE 62; RESP 14; TEMP 36.5; O2SAT 95
== END 2024-06-05 08:25 | disposition home or self-care (01) ==
PROVIDERS: Emergency Provider Emergency Medicine; PCP Internal Medicine
DX: H01.003 Unspecified blepharitis right eye, unspecified eyelid (principal); M72.2 Plantar fascial fibromatosis; M79.672 Pain in left foot; H57.89 Other specified disorders of eye and adnexa
CPT/HCPCS: 73630; 99283

== ENCOUNTER 2024-12-07 08:08 | Outpatient (AMB) | payer MEDICAID, SELFPAY ==
--- NOTE | 2024-12-07 08:12 | A.OFFPC_ITS ---
Vital Signs 12/07/24 08:13 Height 5 ft 10 in Weight 317 lb BMI 45.5 BP 118/82 Blood Pressure Location Lt brachial Position Sitting Intake Visit Reasons: requesting sleep annea test Intake Note: Patient here requesting sleep apnea test Ethnology Teacher Required: No Accompanied by: Self / Same As Patient Allergies No Known Allergies Allergy (Verified 12/07/24 08:36) Medication List - Last Reconciled 12/07/24 by Yamileth Márquez MD acetaminophen 500 mg PO Q6H PRN 30 days hyoscyamine sulfate 0.125 mg PO QID ibuprofen 600 mg PO Q6H PRN omeprazole 20 mg PO DAILY 90 days pseudoephedrine HCl ER (Sudafed 12 Hour) 120 mg PO BID PRN sumatriptan succinate 25 mg PO Q2-4H PRN 30 days Tobacco use date assessed: 12/07/24 Dental Screening Dental Screen Date: 12/07/24 Did you have a dental visit in the last 12 months?: No Did you have a dental problem in the last 6 months where you did not have access to dental care?: No Was dental information given to patient?: Patient has dentist HPI HPI Comments History of Present Illness Details The patient is a 44-year-old male presenting with morid obesity and related concerns, including suspected sleep apnea and gastroesophageal reflux disease (GERD). His body mass index (BMI) is recorded at 45.5, indicating morbid obesity. He reports ongoing management of GERD with Omeprazole, which e ffectively controls his symptoms. The patient self-reports chronic back pain, for which he intermittently uses ibuprofen for relief. He also has ophthalmoplegic migraines relieve by sumatriptan with less than 10 episodes per month. He mentions difficulty with weight management, expressing interest in potential pharmacological intervention due to his eligibility for bariatric surgery based on BMI criteria. The sleep apnea concerns were noted during discussions about symptoms of excessive daytime sleepiness and waking with a dry mouth, although he denies awakening with a sense of choking or fear. He severly dozed off while watching TV, lying down in the afternoon when circumstances permit and resting after lunch without alcohol and moderately dozed off while sitting inactively in a public place with [place] Score Scale of 10. Sleep study will be order. [facility] Medical History Morbid obesity with BMI of 45.0-49.9, adult Lumbar pain Dysphagia Chest pain Morbid obesity with BMI of 40.0-44.9, adult Ophthalmoplegic migraine Leukopenia Sore throat Left hip pain Upper back pain COVID-19 GERD (gastroesophageal reflux disease) Surgical History No pertinent past surgical history Family History Father No problems noted. Mother Stroke Diabetes Hypertension Social History Housing: House Alcohol intake: former Patient Tobacco Use Status: Never used Tobacco e-Cigarette/Vaping Use: Never Used Second Hand Smoke Exposure: No service: No Current occupational status: employed Current occupational exposures/hazards: No Cognitive needs: No Hearing needs: No Vision needs: Yes (glasses) Questionnaire PHQ-9 Over the last 2 weeks, how often have you been bothered by any of the following problems? 1. Little interest or pleasure in doing things: not at all 2. Feeling down, depressed, or hopeless: not at all 3. Trouble falling or staying asleep, or sleeping too much: not at all 4. Feeling tired or having little energy: not at all 5. Poor appetite or overeating: not at all 6. Feeling bad about yourself - or that you are a failure or have let yourself or your family down: not at all 7. Trouble concentrating on things, such as reading the newspaper or watching television: not at all 8. Moving or speaking so slowly that other people could have noticed. Or the opposite - being so fidgety or restless that you have been moving around a lot more than usual: not at all 9. Thoughts that you would be better off or of hurting yourself in some way: not at all Total score: 0 Depression Screening Interpretation: Negative Depression Screening Done: Yes 22404 - PHQ-9 Billing: Yes Source: Developed by Drs. Sergey Aquino, Gisela Stewart, Josue Cortes and colleagues, with an educational rojelio from [employer]. Thrive Questionnaire Date Thrive assessed: 12/07/24 I am a: Patient What is your living situation today?: I have a steady place to live Within the past 12 months, did the food you bought not last and you didn't have the money to get more?: Never true Within the past 12 months, did you worry whether your food would run out before you got money to buy more?: Never true Do you have trouble paying for medicines?: No Do you have trouble getting transportation to medical appointments?: No Do you have trouble paying your heating and electricity bill?: No Do you have trouble taking care of your child, family member or friend?: No Do you have trouble with day-to-day activities such as bathing, preparing meals, shopping, managing finances, etc.?: No Are you currently unemployed and looking for a job?: No Are you interested in more education?: No Please select the resources that you would like help with: None Currently or been in a relationship where the following occur: No concerns reported THRIVE Score: 0 AUDIT C Alcohol Use Questionnaire (AUDIT-C) 1. How often do you have a drink containing alcohol?: Never Total Score: 0 Score Reviewed/Action Taken: No KERRY-7 AMB Questionnaire KERRY-7 Date KERRY - 7 assessed: 12/07/24 Feeling nervous, anxious, or on edge: 0 = Not at all Not being able to stop or control worryin = Not at all Worrying too much about different things: 0 = Not at all Trouble relaxin = Not at all Being so restless that it is hard to sit still: 0 = Not at all Becoming easily annoyed or irritable: 0 = Not at all Feeling afraid as if something awful might happen: 0 = Not at all Total KERRY-7 score (0-4 normal; 5-9 mild; 10-14 moderate; 15-21 severe): 0 Source: Developed by Drs. Sergey Aquino, Gisela Stewart, Josue Cortes and colleagues, with an educational rojelio from [employer]. KERRY-7 Assessment Billing KERRY-7 Assessment Tool: KERRY-7 Assessment 96737 Review of Systems Const Details: - General: Denies depression or anxiety. - Respiratory: Denies respiratory interruptions during sleep but notes potential sleep apnea. - Gastrointestinal: Reports controlled GERD on Omeprazole. - Musculoskeletal: Reports chronic back pain. Physical exam (Primary Care) Vital Signs: Last Vital Signs BP 118/82 12/07/24 08:13 BMI result Body Mass Index 45.5 BMI Assessment/Plan discussion: High BMI High, discussed plan: lifestyle, weight reduction, dietary and physical activity Tobacco/Smoking Status: Tobacco use Status Tobacco use date assessed 12/07/24 12/07/24 08:18 Patient Tobacco Use Status Never used Tobacco 12/07/24 08:18 e-Cigarette/Vaping Use Never Used 12/07/24 08:18 PHQ-9: PHQ-9 Score PHQ-9: Total score 0 12/07/24 09:00 Depression Screening Interpretation: Negative Thrive Assessment: Date of Thrive Assessment Date Thrive assessed 12/07/24 12/07/24 08:18 Currently or been in a relationship where the following occur: No concerns reported Const Other: General: No confusion Respiratory: Normal respiratory effort, clear to auscultation bilaterally Cardiovascular: No jugular venous distension, regular rate, regular rhythm, S1 normal heart sound present and S2 normal heart sound present GI: Normal to inspection, Soft to palpation and nontender, normal bowel sounds Skin: No rashes or lesions noted Neurology: Patient oriented x3, no focal motor deficits and No confusion Extremities: Full ROM Psychology: Grossly normal Office Procedures Flu Questionnaire Does the patient have a severe egg allergy?: No Does the patient have severe life threatening allergies?: No Does the patient have a fever or illness today?: No Has the patient ever had Guillain-Curlew Syndrome?: No Has the patient ever had any past reaction to a flu shot?: No Immunizations Fluarix Triv [id number] (PF) 45 mcg (15 mcg x 3)/0.5 mL IM syringe Performing Provider: Yamileth Márquez MD [facility] [place] [facility] Administered by: KIMBERLY Benjamin on 12/07/24 08:59 Dose Route Admin Location Dispensed Lot Number Expiration Date [facility] Senior Mainframe Programmer Analyst 0.5 mL IM Left Deltoid 0.5 mL [id number] 05/29/25 [id number] [employer] VIS Given Date VIS Provided VIS Publication Date 12/07/24 Single Vaccine 21 Eligibility Eligibility Date Funding Source Not [facility] Eligible 12/07/24 Private Coding Level of Care Code Est Pt Level 4 (07518) Complex EM visit Add On G2211 Diagnoses Daytime somnolence R40.0 Morbid obesity with BMI of 40.0-44.9, adult E66.01; Z68.41 Gastroesophageal reflux disease without esophagitis K21.9 Esophagitis presence: without esophagitis Ophthalmoplegic migraine, not intractable G43.B0 Intractability: not intractable Additional Codes KERRY-7 Assessment Billing - KERRY-7 Assessment Tool: KERRY-7 Assessment 49366 ([id number]) PHQ-9 - 68050 - PHQ-9 Billing: Yes ([id number]) Time Spent (min) 22 Assessment & Plan Assessment & Plan (1) Daytime somnolence: Code(s): R40.0 - Somnolence Category: Medical (2) Morbid obesity with BMI of 40.0-44.9, adult: Code(s): E66.01 - Morbid (severe) obesity due to excess calories; Z68.41 - Body mass inde x [BMI] 40.0-44.9, adult Category: Medical (3) GERD (gastroesophageal reflux disease): Code(s): K21.9 - Gastro-esophageal reflux disease without esophagitis Category: Medical Qualifiers: Esophagitis presence: without esophagitis Qualified Code(s): K21.9 - Gastro-esophageal reflux disease without esophagitis (4) Ophthalmoplegic migraine: Code(s): G43.B0 - Ophthalmoplegic migraine, not intractable Category: Medical Qualifiers: Intractability: not intractable Qualified Code(s): G43.B0 - Ophthalmoplegic migraine, not intractable Plan - Consider medication for obesity management, pending insurance approval. - Referral for home sleep apnea testing to assess symptoms of daytime sleepiness and potential sleep disturbances. - Continue current GERD management with Omeprazole. - Schedule lab work in February to evaluate lipids. - Monitor blood pressure regularly, as it is currently stable. Patient was informed and verbally consented to the use of an ambient scribe for clinic note documentation during this visit. During the visit, we reviewed the patient's current health concerns, prioritizing his obesity and potential sleep apnea. I discussed the possible pharmacological approach for weight loss as an alternative to surgery. We reviewed the side-effect profile of weight-loss medications, including potential nausea and vomiting, and I emphasized the possibility of discontinuation if adverse effects occur. I explained the process of the home sleep apnea test, including the simplicity of use and the importance of assessing his complaints more thoroughly. We confirmed that his GERD was well-controlled on Omeprazole, with no need for further immediate intervention. Regarding hyperlipidemia, I outlined the plan to perform lab work in February, following which further treatment options would be discussed based on the results. Orders: Orders Influenza [id number] Immunization Today Z23 - Encounter for immunization Lipid Panel Today E66.01 - Morbid (severe) obesity due to excess calories, E78.5 - Hyperlipidemia, unspecified, Z68.41 - Body mass index [BMI] 40.0-44.9, adult RT home sleep study Today R40.0 - Somnolence Comprehensive [place]. Panel Fast Today E66.01 - Morbid (severe) obesity due to excess calories, Z68.41 - Body mass index [BMI] 40.0-44.9, adult Thyroid Stimulating Hormone Today E66.01 - Morbid (severe) obesity due to excess calories, Z68.41 - Body mass index [BMI] 40.0-44.9, adult Complete Blood Count Auto Diff Today E66.01 - Morbid (severe) obesity due to excess calories, Z68.41 - Body mass index [BMI] 40.0-44.9, adult Medications: New tirzepatide (weight loss) (Zepbound) for 4 weeks 2.5 mg (0.5 mL) subcut QWEEK 2 mL 0RF 4 weeks E66.01 - Morbid (severe) obesity due to excess calories, Z68.41 - Body mass index [BMI] 40.0- 44.9, adult Discontinued hyoscyamine sulfate Discontinued Reason: Patient Completed Course 0.125 mg PO QID 10 tabs 0RF pseudoephedrine HCl ER (Sudafed 12 Hour) Discontinued Reason: Patient Completed Course 120 mg PO BID PRN 20 tabs 0RF nasal congestion Patient Instructions: - Await confirmation on medication approval for weight loss. - Perform the home sleep apnea test as instructed. - Continue taking Omeprazole for GERD control. - Prepare for laboratory tests during the February physical exam. - Monitor and record any new or worsening symptoms.
[2024-12-07 08:13] VITALS: BP 118/82; BMI 45.5
== END 2024-12-07 08:53 | disposition home or self-care (01) ==
PROVIDERS: PCP Internal Medicine; Visit Provider Internal Medicine
DX: R40.0 Somnolence (principal); E66.01 Morbid (severe) obesity due to excess calories; Z68.41 Body mass index [BMI] 40.0-44.9, adult; K21.9 Gastro-esophageal reflux disease without esophagitis; G43.B0 Ophthalmoplegic migraine, not intractable; Z23 Encounter for immunization

== ENCOUNTER → 2024-12-07 08:08 | Outpatient (BNVA) | payer OTHER, SELFPAY | PROVIDERS: PCP Internal Medicine; Visit Provider Internal Medicine | DX: E66.01 Morbid (severe) obesity due to excess calories (principal); K21.9 Gastro-esophageal reflux disease without esophagitis; R40.0 Somnolence; G43.B0 Ophthalmoplegic migraine, not intractable; Z23 Encounter for immunization; Z68.41 Body mass index [BMI] 40.0-44.9, adult; Z68.42 Body mass index [BMI] 45.0-49.9, adult; Z79.899 Other long term (current) drug therapy | CPT/HCPCS: 90471; 90656; 96127; 99212 ==

== ENCOUNTER → 2024-12-16 15:27 | Outpatient (BNVA) | payer SELFPAY | PROVIDERS: PCP Internal Medicine; Visit Provider Physician Assistant | DX: Z02.79 Encounter for issue of other medical certificate (principal) ==